=== PATIENT | male | born 1955 | race Caucasian/White ===

== ENCOUNTER 2022-09-10 19:39 | Emergency (ER) | payer MEDICARE, BC | END 2022-09-10 20:20 | disposition home or self-care (01) | LOC: VM.ED 19:39 | DX: S06.0X0A Concussion without loss of consciousness, initial encounter (principal); W01.198A Fall on same level from slipping, tripping and stumbling with subsequent striking against other object, initial encounter | CPT/HCPCS: 99283 ==